=== PATIENT | female | born 1990 | race Caucasian/White ===

== ENCOUNTER 2019-06-01 07:35 | Emergency (ER) | payer OTHER ==
[2019-06-01 08:30] LABS: APPEARANCE,URINE CLEAR; BILIRUBIN,URINE NEGATIVE (NEGATIVE); COLOR,URINE YELLOW; GLUCOSE, URINE NEGATIVE (NEGATIVE); KETONES,URINE NEGATIVE (NEGATIVE); LEUKOCYTE ESTERASE,URINE NEGATIVE (NEGATIVE); NITRITE,URINE NEGATIVE (NEGATIVE); PROTEIN,URINE NEGATIVE (NEGATIVE); URINE SPECIFIC GRAVITY 1.019; UROBILINOGEN,URINE NEGATIVE mg/dL (<2.0)
[2019-06-01] MEDS ORDERED: CYCLOBENZAPRINE HCL 10 MG TABLET PO ONE (08:43)
[2019-06-01] MEDS ORDERED: KETOROLAC TROMETHAMINE 60 MG/2 ML SDV IM ONE (08:44)
[2019-06-01] MEDS ORDERED: OXYCODONE-ACETAMINOPHEN 5-325 MG TABLET PO ONE (08:44)
--- NOTE | 2019-06-01 08:47 | ER Document Report ---
ED General - General Chief Complaint: Flank Pain Stated Complaint: BACK PAIN Time Seen by Provider: 06/01/19 07:57 TRAVEL OUTSIDE OF THE [place] IN LAST 30 DAYS: No - HPI Notes: Patient is a 28-year-old female who presents emergency department for evaluation of lower back pain. She states she woke up this morning. She noticed that her lower back was hurting. She went to get up and her pain became much more severe. She has had some back pain in the past, but states is never been quite this bad. She denies any bowel or bladder incontinence, no saddle anesthesia, no focal numbness or weakness. She has been going to the gym lately. She just started going to days ago. She denies any injury. No known fevers or urinary symptoms. She is been eating and drinking normally. - Related Data Allergies/Adverse Reactions: No Known Allergies Allergy (Verified 06/01/19 07:36) Home Medications: None Past Medical History - General Information source: Patient - Social History Smoking Status: Never Smoker Frequency of alcohol use: None Drug Abuse: None Family History: Reviewed & Not Pertinent Patient has suicidal ideation: No Patient has homicidal ideation: No - Medical History Medical History: Negative Renal/ Medical History: Denies: Hx Peritoneal Dialysis Review of Systems - Review of Systems Constitutional: No symptoms reported EENT: No symptoms reported Cardiovascular: No symptoms reported Respiratory: No symptoms reported Gastrointestinal: No symptoms reported Genitourinary: No symptoms reported Female Genitourinary: No symptoms reported Musculoskeletal: See HPI Skin: No symptoms reported Neurological/Psychological: No symptoms reported Physical Exam - Vital signs Vitals: Temp Pulse Resp BP Pulse Ox 97.4 F 94 16 134/93 H 96 06/01/19 07:41 06/01/19 07:41 06/01/19 07:41 06/01/19 07:41 06/01/19 07:41 - Notes Notes: Vital signs reviewed, please refer to chart. Head is normocephalic, atraumatic. Pupils equal round, reactive to light. Neck is supple without meningismus. Heart is regular rate and rhythm. Lungs are clear to auscultation bilaterally. Abdomen is soft, nontender, normoactive bowel sounds throughout. Extremities without cyanosis, clubbing. Posterior calves are nontender. Peripheral pulses are equal. Skin is warm and dry. Examination of the spine yields no midline tenderness or step-off. She has paraspinal musculature tenderness noted from L2 down through the SI joints bilaterally, left greater than right. Associated spasm is noted. Negative straight leg raise bilaterally. Strength is plus 5 out of 5 bilateral lower extremities. Patellar and Achilles reflexes are symmetrical and 2+ bilaterally. Sensation is intact. Course - Re-evaluation Re-evalutation: 06/01/19 08:47 Patient presents to the emergency department for evaluation. Her symptoms present mostly like mechanical/musculoskeletal low back pain. Urinalysis and are ordered. Patient medicated here with Flexeril, Toradol, Percocet. We will continue to monitor. 06/01/19 11:03 Patient feeling drowsy, somewhat improved. Again her symptoms seem most likely related to musculoskeletal back pain. Her urinalysis is unremarkable. We will send the patient home with anti-inflammatories, mild muscle relaxers. She is to apply moist heat to the area. Avoid total bedrest. Lifting restrictions communicated. She is encouraged to follow-up with primary care, perhaps seek out physical therapy. She voiced understanding to this. She is to return to the ED if there is no new concerning symptoms of any sort. - Vital Signs Vital signs: Temp Pulse Resp BP Pulse Ox 97.4 F 94 16 134/93 H 96 06/01/19 07:41 06/01/19 07:41 06/01/19 07:41 06/01/19 07:41 06/01/19 07:41 - Laboratory Laboratory results interpreted by me: Urinalysis negative Discharge - Discharge Clinical Impression: Low back pain Qualifiers: Chronicity: acute Back pain laterality: bilateral Sciatica presence: with sciatica Condition: Stable Disposition: HOME, SELF-CARE Instructions: Low Back Pain ([facility]) Additional Instructions: Moist heat to the lower back. Avoid lifting anything heavier than 5 pounds. Gentle stretching. Avoid complete bed rest. Take medications as prescribed. Watch for drowsiness with muscle relaxers. Follow-up with primary care physician in 1 to 2 weeks. You may benefit from physical therapy. Return to the emergency department with worsening or new concerning symptoms of any sort.
[2019-06-01 11:14] VITALS: BP 108/72
== END 2019-06-01 11:10 | disposition home or self-care (01) ==
LOC: ER 07:35
DX: M54.40 Lumbago with sciatica, unspecified side (principal); M62.830 Muscle spasm of back
CPT/HCPCS: 99284; 96372; 81025; 81001; J1885